=== PATIENT | male | born 1945 | race Caucasian/White ===

== ENCOUNTER 2017-05-03 21:25 | Emergency (ER) | payer OTHER ==
--- NOTE | 2017-05-03 21:41 | CPEKG ---
Heart Rate: 81 RR Interval: 741 P-R Interval: 164 QRSD Interval: 112 QT Interval: 396 QTC Interval: 460 P [place]: 70 QRS [place]: 227 T Wave [place]: 42 EKG Severity - ABNORMAL ECG - EKG Impression: SINUS RHYTHM EKG Impression: PVC's EKG Impression: NONSPECIFIC INTRAVENTRICULAR CONDUCTION DELAY Electronically Signed By: Oscar Weber 04-May-2017 01:37:11
[2017-05-03] MEDS: NS 500 ML IV ONE (22:05)
[2017-05-03 22:19] LABS: % IMMATURE GRANULYOCYTES 0.3 % (0.0-1.1); ABSOLUTE IMMATURE GRANULOCYTES 0.03 10^3/uL (0.00-0.10); ADD DIFF? NO; ADD MORPH? NO; ADD SCAN? NO; ATYPICAL LYMPHOCYTE FLAG 0 (0-99); FRAGMENT RBC FLAG 0 (0-99); HEMATOCRIT 43.8 % (40.0-51.0); HEMOGLOBIN 14.7 g/dL (13.7-17.5); LEFT SHIFT FLG 0 (0-99); LIPEMIA HEMOLYSIS FLAG 80 (0-99); MEAN CELL HEMOGLOBIN 27.9 pg (27.9-34.1); MEAN CELL HEMOGLOBIN CONCENTR. 33.6 g/dL (32.4-36.7); MEAN CELL VOLUME 83.3 fL (81.5-99.8); MEAN PLATELET VOLUME 9.3 fL (8.7-11.7); PLATELET CLUMPS FLAG 0 (0-99); PLATELET COUNT 291 10^3/uL (150-400); RED BLOOD CELL COUNT 5.26 10^6/uL (4.40-6.38); RED CELL DISTRIBUTION WIDTH 14.6 % (11.5-15.2)
[2017-05-03 22:28] LABS: INR 0.92 (0.83-1.16); PROTIME(PATIENT) 12.3 SEC (12.0-15.0)
[2017-05-03 22:29] LABS: APTT 26.8 SEC (23.0-38.0)
--- NOTE | 2017-05-03 23:02 | EDPHY ---
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 He has a past medical history of coronary artery disease , had a CABG 20 years ago. Patient states that this afternoon he felt some not mild nausea. Checked his pulse and felt he was bradycardic in the 50s and noted that he had an irregular pulse. He has not had any chest pain. No shortness of breath. Some mild lightheadedness. No fevers or chills. No recent illness. He did go golfing this morning but the drink plenty of fluid. ROS: 10 point Review of Systems is negative except as noted in the HPI. PMH: The coronary artery disease, diabetes, kidney stones, hypertension Medications: Metoprolol, metformin, Pravachol, aspirin, valsartan/ hydrochlorothiazide, amlodipine, tamsulosin Allergies: No known drug allergies Social History: No smoking, rare alcohol, occasional marijuana Family History: Father had hypertension lung cancer Physical Exam: Gen: Awake, Alert, No Distress HEENT: Nose: no rhinorrhea Eyes: PERRLA, EOMI Mouth: Moist mucosa Neck: Supple, no JVD Chest: nontender, lungs clear to auscultation Heart: S1, S2 normal, no murmur Abd: Soft, non-tender, no guarding Back: no CVA tenderness, no midline tenderness Ext: no edema, non-tender Skin: no rash Neuro: CN II-XII intact, Sensation grossly intact, Strength 5/5 in bilateral upper and lower extremities - Personal History Current Tetanus Diphtheria and Acellular Pertussis (TDAP): Yes Tetanus Vaccine Date: 2013 - Medical/Surgical History Hx Asthma: No Hx Chronic Respiratory Disease: Yes Hx Diabetes: Yes Hx Cardiac Disease: Yes Hx Renal Disease: No Hx Cirrhosis: No Hx Alcoholism: No Hx HIV/AIDS: No Hx Splenectomy or Spleen Trauma: No Other PMH: PSH: cabg; transurethral lazer R side kidney stone removal; B elective iridectomy;. PMH: t2DM; htn; CAD; R side kidney stone, copd; b decreased hearing; sleep apnea w/ cpap - Social History Smoking Status: Former smoker Constitutional: Initial Vital Signs Heart Rate 79 05/03/17 21:30 Respiratory Rate 20 05/03/17 21:30 Blood Pressure 164/90 H 05/03/17 21:30 O2 Sat (%) 97 05/03/17 21:30 O2 Delivery Mode Room Air Allergies/Adverse Reactions: lisinopril Allergy (Verified 05/03/17 21:27) bee stings Allergy (Uncoded 05/03/17 21:27) Home Medications: Medication Instructions Recorded Aspirin 11/24/15 Metformin HCl 11/24/15 Metoprolol Succinate 11/24/15 Pravachol 11/24/15 Amlodipine Besylate 05/03/17 Tamsulosin HCl 05/03/17 Valsartan-Hctz 80-12.5 mg Tab 05/03/17 Medical Decision Making - Diagnostics EKG Interpretation: ECG time 9:38 p.m., sinus rhythm with a rate of 81, frequent unifocal PVCs, normal axis, normal intervals, nonspecific intraventricular conduction delay, no acute ST or T-wave changes. ED Course/Re-evaluation: ECG is normal. Does have some PVCs but nothing else concerning. Electrolytes are normal. Troponin is undetectable. Patient continues to have some rare PVCs but otherwise symptom free. Will discharge with follow-up with primary care physician instructions return for worsening. No evidence of acute coronary syndrome at this time. - Data Points Laboratory Results: Laboratory Results 05/03/17 21:45 05/03/17 21:45 05/03/17 05/03/17 05/03/17 21:45 21:45 21:45 WBC 9.84 10^3/uL H 10^3/uL (3.80-9.50) RBC 5.26 10^6/uL 10^6/uL (4.40-6.38) Hgb 14.7 g/dL g/dL (13.7-17.5) Hct 43.8 % % (40.0-51.0) MCV 83.3 fL fL (81.5-99.8) MCH 27.9 pg pg (27.9-34.1) MCHC 33.6 g/dL g/dL (32.4-36.7) RDW 14.6 % % (11.5-15.2) Plt Count 291 10^3/uL 10^3/uL (150-400) MPV 9.3 fL fL (8.7-11.7) Neut % (Auto) 57.7 % % (39.3-74.2) Lymph % (Auto) 29.2 % % (15.0-45.0) [place] % (Auto) 9.6 % % (4.5-13.0) Eos % (Auto) 2.5 % % (0.6-7.6) Baso % (Auto) 0.7 % % (0.3-1.7) Nucleat RBC Rel Count 0.0 % % (0.0-0.2) Absolute Neuts (auto) 5.68 10^3/uL 10^3/uL (1.70-6.50) Absolute Lymphs (auto) 2.87 10^3/uL 10^3/uL (1.00-3.00) Absolute Monos (auto) 0.94 10^3/uL H 10^3/uL (0.30-0.80) Absolute Eos (auto) 0.25 10^3/uL 10^3/uL (0.03-0.40) Absolute Basos (auto) 0.07 10^3/uL 10^3/uL (0.02-0.10) Absolute Nucleated RBC 0.00 10^3/uL 10^3/uL (0-0.01) Immature Gran % 0.3 % % (0.0-1.1) Immature Gran # 0.03 10^3/uL 10^3/uL (0.00-0.10) PT 12.3 SEC SEC (12.0-15.0) INR 0.92 (0.83-1.16) APTT 26.8 SEC SEC (23.0-38.0) Sodium 139 mEq/L mEq/L (134-144) Potassium 4.1 mEq/L mEq/L (3.5-5.2) Chloride 101 mEq/L mEq/L (97-110) Carbon Dioxide 23 mEq/l mEq/l (22-31) Anion Gap 15 mEq/L mEq/L (8-16) BUN 22 mg/dL mg/dL (7-23) Creatinine 1.3 mg/dL mg/dL (0.7-1.3) Estimated GFR 55 Glucose 123 mg/dL H mg/dL (70-100) Calcium 10.2 mg/dL mg/dL (8.5-10.4) Troponin I < 0.012 ng/mL ng/mL (0-0.034) NT-Pro-B Natriuret Pep 114 pg/mL pg/mL (0-125) Medications Given: Discontinued Medications Sodium Chloride (Ns) 500 mls @ 1,000 mls/hr IV ONCE ONE PRN Reason: Protocol Stop: 05/03/17 22:03 Last Admin: 05/03/17 22:05 Dose: 500 mls Departure - Departure Disposition: Home, Routine, Self-Care Clinical Impression: PVC (premature ventricular contraction) Condition: Fair Instructions: Premature Ventricular Contractions (ED) Additional Instructions: Follow up with primary care physician in 2-3 days if you're continuing to have an irregular heartbeat. Return to the emergency department for chest pain, shortness of breath, lightheadedness, passing out, or any other concerns. Referrals: Mateo Glover MD [Primary Care Provider] - As per Instructions
[2017-05-03 23:24] LABS: ANION GAP 15 mEq/L (8-16); CALCIUM 10.2 mg/dL (8.5-10.4); CARBON DIOXIDE 23 mEq/l (22-31); CHLORIDE 101 mEq/L (97-110); CREATININE 1.3 mg/dL (0.7-1.3); GLOMERULAR FILTRATION RATE 55; GLUCOSE 123 mg/dL (70-100); POTASSIUM 4.1 mEq/L (3.5-5.2); SODIUM 139 mEq/L (134-144)
[2017-05-03 23:31] VITALS: O2SAT 95
[2017-05-03 23:36] LABS: TROPONIN I < 0.012 ng/mL (0-0.034)
[2017-05-04 00:01] VITALS: BP 116/56; PULSE 76; RESP 16
[2017-05-04] MEDS: NS 500 ML IV ONE (00:01)
== END 2017-05-04 00:01 | disposition home or self-care (01) ==
DX: I49.3 Ventricular premature depolarization (principal); I25.810 Atherosclerosis of coronary artery bypass graft(s) without angina pectoris; E11.9 Type 2 diabetes mellitus without complications; I10 Essential (primary) hypertension; Z79.82 Long term (current) use of aspirin; Z79.84 Long term (current) use of oral hypoglycemic drugs; Z87.891 Personal history of nicotine dependence

== ENCOUNTER → 2017-09-15 | Outpatient (CLI) | payer OTHER | LOC: FIMAGING 10:53 | PROVIDERS: ATTEND Neurological Surgery | DX: M54.16 Radiculopathy, lumbar region (principal); M51.36 Other intervertebral disc degeneration, lumbar region; M41.9 Scoliosis, unspecified; Q76.49 Other congenital malformations of spine, not associated with scoliosis; M48.16 Ankylosing hyperostosis [Forestier], lumbar region; M48.061 Spinal stenosis, lumbar region without neurogenic claudication; M51.26 Other intervertebral disc displacement, lumbar region ==

== ENCOUNTER → 2017-11-24 | Outpatient (CLI) | payer OTHER | LOC: BHFA 08:30 | PROVIDERS: ATTEND Internal Medicine Interventional Cardiology | DX: I25.10 Atherosclerotic heart disease of native coronary artery without angina pectoris (principal); I10 Essential (primary) hypertension | CPT/HCPCS: 78452; 93017; A9500 ==

== ENCOUNTER 2017-12-02 07:30 | Inpatient (IN) | payer OTHER ==
[2017-12-21] MEDS ORDERED: GABAPENTIN 300 MG CAP PO ONE (10:49)
[2017-12-21] MEDS ORDERED: ACETAMINOPHEN 500 MG TAB PO ONE (10:49)
[2017-12-21] MEDS ORDERED: ceFAZolin 2 GM/SWFI 2 GM/20 ML SYR IVP ONE (10:49)
[2017-12-21] MEDS ORDERED: LR 1,000 ML IV ONE (10:52)
[2017-12-21] MEDS ORDERED: LIDOCAINE 1% 2 ML INJ ID PRN (10:52)
[2017-12-21] MEDS ORDERED: BACITRACIN 50,000 UNITS/10 ML SYR IRR ONE (10:57)
[2017-12-21] MEDS ORDERED: CHLORHEXIDINE GLUC HIBICLENS 118 ML BTL TP ONE (10:57)
[2017-12-21] MEDS ORDERED: BUPIVACAINE 0.25% 30 ML SDV ONE ×2 (10:57→13:09)
[2017-12-21] MEDS ORDERED: DEPO METHYLPREDNISOLONE 40 MG/ML SDV ONE (10:57)
--- NOTE | 2017-12-21 11:25 | PDGENHP ---
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 He describes his symptoms as bilateral quad pain as well as lower back pain that is exacerbated with walking. He has a history of CABG 20 years ago and underwent a stress test earlier this month. History Information - Allergies/Home Medication List Allergies/Adverse Reactions: lisinopril Allergy (Verified 10/30/17 10:37) bee stings Allergy (Uncoded 05/03/17 21:27) Home Medications: Aspirin DAILY AT 6AM 11/24/15 [Last Taken Unknown] Metformin HCl BID 11/24/15 [Last Taken Unknown] Metoprolol Succinate DAILY AT 8PM 11/24/15 [Last Taken Unknown] Pravachol DAILY AT 8PM 11/24/15 [Last Taken Unknown] Amlodipine Besylate DAILY AT 6AM 05/03/17 [Last Taken Unknown] Tamsulosin HCl BID 05/03/17 [Last Taken Unknown] Valsartan-Hctz 80-12.5 mg Tab DAILY AT 6AM 05/03/17 [Last Taken Unknown] Proscar 5 MG (*) DAILY AT 6AM 10/30/17 [Last Taken Unknown] I have personally reviewed and updated: family history, medical history, social history, surgical history - Past Medical History coronary artery disease - Surgical History Reports: no pertinent surgical hx - Social History Smoking Status: Former smoker Review of Systems Review of Systems: ROS: 10pt was reviewed & negative except for what was stated in HPI & below Physical Exam Physical Exam: AxO x3 bilateral lower extremities 5/5 throughout all muscle groups 2+ knee and ankle reflexes Constitutional: no apparent distress Eyes: PERRL Ears, Nose, Mouth, Throat: moist mucous membranes Cardiovascular: regular rate and rhythym Respiratory: no respiratory distress Skin: warm, normal color Musculoskeletal: full muscle strength Neurologic: AAOx3 Assessment & Plan Assessment: 72 yr old with low back pain and bilateral quad pain Plan: 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 MRI lumbar spine demonstrates bony union at L5-S1 and severe stenosis at L2-3, L3-4, L4-5. The is trace spondylolisthesis. Dr Cardoza suggested a 3 level laminectomy. He does not feel fusion surgery is needed at this time but certainly could be needed at a later time. Adam received cardiac clearance from [facility]. Surgery scheduled is L2-3, L3-4, L4-5 laminectomy. Risks/benefits reviewed and consents have been signed.
--- NOTE | 2017-12-21 12:33 | PDANEPAE ---
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 ANE Past Medical History - Cardiovascular History Hx Hypertension: Yes Hx Arrhythmias: No Hx Chest Pain: No Hx Coronary Artery / Peripheral Vascular Disease: Yes Hx CHF / Valvular Disease: No Hx Palpitations: No Cardiovascular History Comment: 5 v bypass 1996. recent MPI - nl EF, no inducible or fixed perfusion defects - Pulmonary History Hx COPD: No Hx Asthma/Reactive Airway Disease: No Hx Recent Upper Respiratory Infection: No Hx Oxygen in Use at Home: No Hx Sleep Apnea: Yes Sleep Apnea Screening Result - Last Documented: Positive - Neurologic History Hx Cerebrovascular Accident: No Hx Seizures: No Hx Dementia: No - Endocrine History Hx Diabetes: Yes Hypothyroid: No Obesity: mild - Renal History Hx Renal Disorders: No Renal History Comment: Hx of kidney stones - Liver History Hx Hepatic Disorders: No - Neurological & Psychiatric Hx Hx Neurological and Psychiatric Disorders: No - Cancer History Hx Cancer: No - Congenital Disorder History Hx Congenital Disorders: No - GI History Hx Gastrointestinal Disorders: No - Other Health History Other Health History: BPH - Surgical History Prior Surgeries: Lithotripsy 2016 and 2015. CABG 1996. Carpel tunnel 2006 ANE Review of Systems Review of Systems: - Exercise capacity METS (RN): 4 METS - Systems Constitutional: Reports: no symptoms Cardiac: Reports: no symptoms Respiratory: Reports: no symptoms ANE Patient History - Allergies Allergies/Adverse Reactions: lisinopril Allergy (Verified 10/30/17 10:37) bee stings Allergy (Uncoded 05/03/17 21:27) - Home Medications Home Medications: Aspirin DAILY AT 6AM 11/24/15 [Last Taken 2 Weeks Ago ~12/07/17] Metformin HCl BID 11/24/15 [Last Taken 12/19/17] Metoprolol Succinate DAILY AT 8PM 11/24/15 [Last Taken 12/20/17 20:00] Pravachol DAILY AT 8PM 11/24/15 [Last Taken 12/20/17 20:00] Amlodipine Besylate DAILY AT 6AM 05/03/17 [Last Taken 12/20/17 07:00] Tamsulosin HCl BID 05/03/17 [Last Taken 12/21/17 07:00] Valsartan-Hctz 80-12.5 mg Tab DAILY AT 6AM 05/03/17 [Last Taken 12/20/17 07:00] Proscar 5 MG (*) DAILY AT 6AM 10/30/17 [Last Taken 12/21/17 07:00] - NPO status NPO Since - Liquids (Date): 12/21/17 NPO Since - Liquids (Time): 04:00 NPO Since - Solids (Date): 12/20/17 NPO Since - Solids (Time): 22:00 - Anes Hx Anes Hx: no prior problems - Smoking Hx Smoking Status: Former smoker Marijuana use: Yes - Alcohol Use Alcohol Use: Rarely - Family Anes Hx Family Anes Hx: neg - N/A Family Hx Anesthesia Complications: NA ANE Labs/Vital Signs - Labs - BMP Glucose: 146 Creatinine: 1.3 - Vital Signs Blood Pressure: 149/75 Heart Rate: 91 Respiratory Rate: 16 O2 Sat (%): 94 Height: 172.72 cm Weight: 99.79 kg ANE Physical Exam - Airway Neck exam: FROM Mallampati Score: Class 3 - Pulmonary Pulmonary: clear to auscultation - Cardiovascular Cardiovascular: regular rate and rhythym - ASA Status ASA Status: III ANE Anesthesia Plan Anesthesia Plan: general endotracheal anesthesia Lines/Monitors: arterial line, additional IV
[2017-12-21] MEDS ORDERED: PROPOFOL/EMULSION 500 MG/50 ML BOTTLE IV ONE ×3 (12:40→14:36)
[2017-12-21] MEDS ORDERED: fentaNYL 250 MCG/5 ML INJ ONE (12:40)
[2017-12-21] MEDS ORDERED: REMIFENTANIL HCL 1 MG VIAL ONE (12:40)
[2017-12-21] MEDS ORDERED: MIDAZOLAM 2 MG/2 ML VIAL ONE (12:44)
[2017-12-21] MEDS ORDERED: LIDOCAINE 2% 5 ML SDV ONE ×2 (12:49)
[2017-12-21] MEDS ORDERED: ROCURONIUM 50 MG/5 ML VIAL ONE (12:49)
[2017-12-21] MEDS ORDERED: MIDAZOLAM 2 MG/2 ML VIAL IVP ONE (12:53)
[2017-12-21] MEDS ORDERED: THROMBIN (BOVINE) 5,000 UNIT VIAL TP ONE (13:09)
[2017-12-21] MEDS ORDERED: METHOCARBAMOL 750 MG TAB PO PRN (13:27)
[2017-12-21] MEDS ORDERED: MAGNESIUM HYDROXIDE 30 ML UDCUP PO PRN (13:27)
[2017-12-21] MEDS ORDERED: ONDANSETRON DISINTEGRATING 4 MG TAB PO PRN (13:27)
[2017-12-21] MEDS ORDERED: ONDANSETRON 4 MG/2 ML VIAL IVP PRN (13:27)
[2017-12-21] MEDS ORDERED: LACTULOSE 20 GM/30 ML UDCUP PO PRN (13:27)
[2017-12-21] MEDS ORDERED: diphenhydrAMINE 25 MG CAP PO PRN (13:27)
[2017-12-21] MEDS ORDERED: POLYETHYLENE GLYCOL 3350 17 GM PKT PO PRN (13:27)
[2017-12-21] MEDS ORDERED: oxyCODONE IR 5 MG TAB PO PRN (13:27)
[2017-12-21] MEDS ORDERED: BISACODYL 10 MG SUPP PR PRN (13:27)
[2017-12-21] MEDS ORDERED: ceFAZolin 2 GM/DEXTROSE 100 ML IV SCH (14:00)
[2017-12-21] MEDS ORDERED: INSULIN LISPRO 100 UNIT/ML SC ONE ×2 (14:30→16:56)
[2017-12-21] MEDS ORDERED: PROPOFOL 200 MG/20 ML VIAL ONE ×2 (16:10)
[2017-12-21] MEDS ORDERED: ONDANSETRON 4 MG/2 ML VIAL ONE (16:12)
[2017-12-21] MEDS ORDERED: fentaNYL 100 MCG/2 ML INJ IVP PRN (16:56)
[2017-12-21] MEDS ORDERED: NALOXONE HCL 0.4 MG/ML INJ IVP PRN (16:56)
[2017-12-21] MEDS ORDERED: DIAZEPAM 10 MG/2 ML SYR IVP PRN (16:56)
[2017-12-21] MEDS ORDERED: PROMETHAZINE HCL 25 MG/ML INJ IVP PRN (16:56)
[2017-12-21] MEDS ORDERED: LR 500 ML IV PRN (16:56)
[2017-12-21] MEDS ORDERED: OXYCODONE/APAP 5/325 TAB PO PRN (16:56)
[2017-12-21] MEDS ORDERED: ALBUTEROL 3 ML DEYVIAL IH PRN (16:56)
--- NOTE | 2017-12-21 17:25 | POSTOPPROG ---
Post Op Note Date of Operation: 12/21/17 Surgeon: Latrice Kelley Hot Air Furnace Installer And Repairer: Latrice Kelley CMA OR LPN Anesthesia: GET(General Endotracheal) Pre-op Diagnosis: Lumbar stenosis Procedure: L2-5 laminectomies Inf/Abcess present in the surg proc area at time of surgery?: No Depth: Deep Incisional (Fascial) EBL: 100-500 Total fluids administered: see anesthesia Complications: none Date of Surgery: 12/21/17 Post Op Day: 0 Assessment/Plan: 72 yr old s/p L2-5 laminectomies for low back pain and neurogenic claudication Plan: -PT/OT -Pain management -Please call neurosurgery with any questions/concerns Subjective: patient waking up in pacu Objective: patient waking up in pacu moving extremities x4 sensation intact to light touch BLE Dressing CDI Appropriate Neuro Check Frequency Ordered: Yes
[2017-12-21] MEDS ORDERED: D50W 25 GM/50 ML SYR IVP PRN (17:30)
--- NOTE | 2017-12-21 17:45 | POSTANESTH ---
Post Anesthetic Evaluation Cardiovascular Status: Tx Over/Under Hydration (Will give mini IVF bolus) Respiratory Status: Normal, Stable Level of Consciousness/Mental Status: Can Participate in Eval, Moderately Sleepy Pain Control: Adequate, Prn Tx Ordered Nausea/Vomiting Control: Adequate, Prn Tx Ordered Complications Possibly Related to Anesthesia: None Noted (moving extremities x4. )
--- NOTE | 2017-12-21 17:54 | GOP ---
[f rep st] OPERATIVE REPORT DATE OF OPERATION: 12/21/2017 SURGEON: Bret Cardoza MD NEUROSURGEON: Bret Cardoza MD. BREAKER MACHINE TENDER: Latrice Kelley NP. PREOPERATIVE DIAGNOSIS: Lumbar spondylolisthesis, lumbar stenosis, severe lumbar stenosis L2-3, L3-4 , L4-5, neurogenic claudication, right flank pain. POSTOPERATIVE DIAGNOSIS: Lumbar spondylolisthesis, lumbar stenosis, severe lumbar stenosis L2-3, L3- 4, L4-5, neurogenic claudication, right flank pain. PROCEDURE PERFORMED: L2-3, L3-4, L4-5 laminectomy with bilateral medial facetectomies, decompression central thecal sac as well as bilateral recesses, L2-3, L3-4, L4-5 ([id number], [id number] x2), microscope. FINDINGS: ESTIMATED BLOOD LOSS: 250 cc. 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 An MRI of the lumbar spine demonstrated severe stenosis at L2-3, L3-4, L4-5 . He had a severe disk degenerative changes at L4-5 and a calcified disk at that level and really se bonita bilateral facet arthropathy at L3-4, L4-5 with encroachment of the lateral recess spinal canal. I suggested a 3 level laminectomy. We did discuss the possible need for fusion surgery, but this in my view would be an overkill. He did have spondylolisthesis but not remarkable instability and I th ought there was a chance he would get by with a stenosis operation alone. It is my hope that this co uld be accomplished as a L2-L5 fusion. In a gentleman of his age, it is no small undertaking for him and all the subsequent sequela of such an operation. He understood however, there is a chance he wo uld need more extensive surgery and he also developed right flank pain and the etiology of this was u nclear, but he just underwent a procedure for removal of a left kidney stone and the etiology of his right flank pain was unknown. There is a small chance that spinal surgery alone might solve some of this discomfort and I thought we should go ahead and proceed. The risk of nerve injury, spinal fluid leak was discussed. He did want to proceed. DESCRIPTION OF PROCEDURE: The patient was taken to the operating room, placed in the supine position . General anesthesia was begun. He was flipped prone on to the Jean frame. Care was taken to pad all points of contact. His back was sterilely prepped and draped in usual fashion. A localizing x- ray was taken and a midline incision above the L2-3, L3-4, L4-5 interspace. The total incisional katerina gth was 5.5 cm. The subcutaneous tissue was dissected using Bovie cautery down through the fascia an d a subperiosteal dissection was made down the L2-3, L3-4, L4-5 lamina. A localizing x-ray was taken . We removed the complete lamina of L3 and the complete lamina of L4, and we preserved the spinous p rocess of L2 and the spinous process of L5. Localizing x-ray was taken. We introduced operating gary roscope and under the scope, we drilled bilateral laminectomies at L2-3, L3-4, L4-5. He had really r emarkable bilateral facet arthropathy. We opened the thecal sac in the midline initially from L4-[address] up to L2-3 and a nice decompression was performed and as we began to move laterally at L4- 5, it became quite apparent that the dura and the facet joints had become 1 at L4-5, so we turned our attention to L3-4 where we worked our way rostrally and laterally out at L4-5 and here too, there wa s just remarkable facet arthropathy and encroachment in the spinal canal by the facet joints. This t ook a considerable time dissecting around the joints and working our way out in the lateral recess, d ecompressing from the edge of the thecal sac to the edge of the thecal sac, but we were able to do so and as we worked our way rostrally through the rostral arch of L3 into the L2-3 level, there was reji y severe stenoses there as well. We drilled bilateral laminotomies of L2 and decompressed from the i nferior border of the L2 pedicle, which we later proved with an x-ray down through the L2-3 level and across the disk space following the L3 nerve root out into the neural foramen. We did perform yeimi inotomies at L2-3 and L3-4 and then turned our attention to L4-5, where we began on the patient's lef t-hand side and we performed a laminotomy of L5 and then worked our way inferiorly down towards the L 5 pedicle and out laterally and then we came up on toward the hypertrophic facet. We could not separ ate the facet from the dura, could not use a Kerrison to remove this medial portion of the facet, so we simply drilled the facet out just the lateral to the edge of the thecal sac down into the neural f oramen flush with the L5 pedicle. We did preserve the L4-5 facet joint and the IAP of L4 completely, and we thinned this down until we were able to fracture this hypertrophic bone up out of the spinal canal. We did this with a curette and simply started peeling it up. We then dissected mm by mm, as we were able to from the dura in this fashion and got a great lateral recess decompression. We then swept the thecal sac medially and inspected the L4-5 disk and indeed there was some bulging of the L4-5 disk and it was calcified and appeared to be nearly solid bone. There was no compressio n of the L5 nerve root that was residual. I was happy with what we had done on the left-hand side. We then went to the patient's right-hand side and found really essentially the same exact problem and dealt it in the same way. The difficulty on the right-hand side is the dura was even more stuck, bu t we were able to fracture this medial portion of the hypertrophic facet upward and then began to dis sect again the dura away from that fragment. We were eventually able to free it. We then irrigated with antibiotic saline solution. We shot a final x-ray showing the extent of our decompression from the lower L5 pedicle all the way up to the inferior L2 pedicle. There was no significant epidural bl eeding at this point. We had lost blood because of the length of the procedure, but there really had been no significant arterial bleeding at any time during the surgery. We then irrigated with antibi otic saline again and then closed the skin and deeper tissues in multiple layers using Vicryl sutures . Steri-Strips were applied to the skin. The patient was reversed from anesthesia, extubated, and t ransferred to recovery room in stable condition. There were no complications. COMPLICATIONS: None. /[id number]/MODL
[2017-12-21] MEDS ORDERED: DIAZEPAM 10 MG/2 ML SYR ONE (17:58)
[2017-12-21] MEDS ORDERED: fentaNYL 100 MCG/2 ML INJ ONE (17:58)
[2017-12-21] MEDS: GABAPENTIN 300 MG CAP PO SCH ×2 (19:04→22:39)
[2017-12-21] MEDS: ACETAMINOPHEN 500 MG TAB PO SCH ×2 (19:04→22:39)
[2017-12-21] MEDS: ceFAZolin 2 GM/DEXTROSE 100 ML IV SCH (19:37)
[2017-12-21] MEDS ORDERED: TAMSULOSIN HCL 0.4 MG CAP PO ONE (21:00)
[2017-12-21] MEDS ORDERED: metFORMIN HCL 500 MG TAB PO ONE (21:00)
[2017-12-21] MEDS ORDERED: METOPROLOL SUCCINATE XR 25 MG TAB PO ONE (21:00)
[2017-12-21] MEDS ORDERED: PRAVASTATIN SODIUM 20 MG TAB PO ONE (21:00)
[2017-12-21] MEDS: FAMOTIDINE 20 MG TAB PO SCH (21:05)
[2017-12-21] MEDS: SENNOSIDES/DOCUSATE SODIUM TAB PO SCH (21:05)
[2017-12-22] MEDS: ceFAZolin 2 GM/DEXTROSE 100 ML IV SCH (03:19)
[2017-12-22 04:59] LABS: PLATELET COUNT 246 10^3/uL (150-400)
[2017-12-22] MEDS: GABAPENTIN 300 MG CAP PO SCH ×4 (05:25→22:20)
[2017-12-22] MEDS: ACETAMINOPHEN 500 MG TAB PO SCH ×3 (05:25→22:02)
[2017-12-22] MEDS: FAMOTIDINE 20 MG TAB PO SCH ×2 (08:31→20:33)
[2017-12-22] MEDS: SENNOSIDES/DOCUSATE SODIUM TAB PO SCH ×2 (08:31→20:34)
--- NOTE | 2017-12-22 08:35 | NEUSURGPN ---
Date of Surgery: 12/21/17 Post Op Day: 1 Assessment/Plan: 72 yr old s/p L2-5 laminectomies for low back pain and neurogenic claudication POD#1 Plan: -PT/OT -Pain management, pain currently controlled with Tylenol -Patient with urinary retention, refusing straight cath stating he has chronic retention and is not uncomfortable. Will give patients flomax this am and reassess, if retention continues we will consult his urologist Dr Cornejo -May dc home later today pending urination/urology recs -Leg pain improved with ambulation, expected incisional pain -Patient was seen by Dr Cardoza as well -Please call neurosurgery with any questions/concerns Subjective: comfortable, leg pain improved Objective: AxO x3 5/5 BLE sensation intact to light touch BLE Dressing CDI Neuro Check Frequency: per routine Urinary Catheter in Place: No - Physician Discussed Patient with : Sony Patient Seen by : Sony Neurosurgery Physical Exam - Vitals, I&O, Labs I and O 12/21/17 12/22/17 12/23/17 05:59 05:59 05:59 Intake Total 3870 Output Total 510 300 Balance 3360 -300 Weight 99.79 kg Intake: Oral (ml) 1350 IV Intake (ml) 2300 IV Infused (ml) 220 ceFAZolin 2 GM/DEXTROSE 220 100 ml @ 200 mls/hr IV Q8H [facility] Rx#:[id number] Output: Urine (ml) 260 300 Catheter 260 Toilet 300 Estimated Blood Loss (ml) 250 Other: Number of Voids Toilet 4 Bladder Scan Volume (ml) Catheter 174 Vital Signs Temp Pulse Resp BP Pulse Ox 36.9 C 63 12 123/65 H 94 12/22/17 07:42 12/22/17 07:42 12/22/17 07:42 12/22/17 07:42 12/22/17 07:42 Laboratory Results 12/22/17 04:18 12/22/17 04:18 ICD10 Worksheet Patient Problems: Problems Problem Status Onset Lumbar stenosis Acute - ICD10 Problem Qualifiers (1) Lumbar stenosis
[2017-12-22] MEDS ORDERED: HYDROCHLOROTHIAZIDE 12.5 MG CAP PO SCH (09:00)
[2017-12-22] MEDS: TAMSULOSIN HCL 0.4 MG CAP PO SCH (10:25)
[2017-12-22] MEDS: FINASTERIDE 5 MG TAB PO SCH (10:27)
[2017-12-22] MEDS: metFORMIN SR 500 MG TAB PO SCH ×4 (10:40→20:33)
[2017-12-22 12:15] VITALS: RESP 16
--- NOTE | 2017-12-22 16:00 | ASMTCMCOM ---
CM Note CM Note Notes: Pt s/p L2-L5 lami with decompression. 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 PT/OT rec home. Anticipate pt will d/c when medically stable. No CM d/c needs identified at this time. CM available for changes/needs. Date Signed: 12/22/2017 04:00 PM Electronically Signed By:VISHAL Benitez
[2017-12-22] MEDS ORDERED: METOPROLOL SUCCINATE XR 25 MG TAB PO SCH (20:00)
[2017-12-22] MEDS ORDERED: PRAVASTATIN SODIUM 40 MG TAB PO SCH (21:00)
[2017-12-23] MEDS: metFORMIN SR 500 MG TAB PO SCH ×2 (05:50→08:31)
[2017-12-23] MEDS: ACETAMINOPHEN 500 MG TAB PO SCH (05:50)
[2017-12-23] MEDS: TAMSULOSIN HCL 0.4 MG CAP PO SCH (05:54)
[2017-12-23] MEDS: FINASTERIDE 5 MG TAB PO SCH (05:55)
[2017-12-23] MEDS ORDERED: VALSARTAN 80 MG TAB PO SCH (06:00)
[2017-12-23] MEDS ORDERED: VALSARTAN HCTZ PO SCH (06:00)
[2017-12-23] MEDS ORDERED: HYDROCHLOROTHIAZIDE 12.5 MG CAP PO SCH (06:00)
[2017-12-23 07:59] VITALS: BP 122/55; PULSE 62; TEMP 98.4; O2SAT 96
[2017-12-23] MEDS: SENNOSIDES/DOCUSATE SODIUM TAB PO SCH (08:27)
[2017-12-23] MEDS: FAMOTIDINE 20 MG TAB PO SCH (08:27)
--- NOTE | 2017-12-23 08:32 | NEUSURGPN ---
Date of Surgery: 12/21/17 Post Op Day: 2 Assessment/Plan: 72 yr old s/p L2-5 laminectomies for low back pain and neurogenic claudication POD#2 Plan: -PT/OT -Pain currently controlled with Tylenol, will try ice pack to incisional area -Post op urinary retention improved, patient taking home dose Flomax -May dc home -Leg pain improved with ambulation, expected incisional pain -Patient was seen by Dr Cardoza as well -Please call neurosurgery with any questions/concerns Subjective: Expected incisional pain Objective: AxO x3 5/5 BLE sensation intact to light touch BLE Dressing CDI Neuro Check Frequency: per routine Urinary Catheter in Place: No - Physician Discussed Patient with Dr.: Soyn Patient Seen by .: Sony Neurosurgery Physical Exam - Vitals, I&O, Labs I and O 12/22/17 12/23/17 12/24/17 05:59 05:59 05:59 Intake Total 3870 Output Total 510 300 Balance 3360 -300 Weight 99.79 kg Intake: Oral (ml) 1350 IV Intake (ml) 2300 IV Infused (ml) 220 ceFAZolin 2 GM/DEXTROSE 220 100 ml @ 200 mls/hr IV Q8H [facility] Rx#:[id number] Output: Urine (ml) 260 300 Catheter 260 Toilet 300 Estimated Blood Loss (ml) 250 Other: Intake Quantity Yes Sufficient Number of Voids Toilet 4 1 Bladder Scan Volume (ml) Catheter 174 Vital Signs Temp Pulse Resp BP Pulse Ox 36.9 C 62 16 122/55 H 96 12/23/17 07:58 12/23/17 07:58 12/23/17 07:58 12/23/17 07:58 12/23/17 07:58 Laboratory Results 12/22/17 04:18 12/22/17 04:18 ICD10 Worksheet Patient Problems: Problems Problem Status Onset Lumbar stenosis Acute - ICD10 Problem Qualifiers (1) Lumbar stenosis
--- NOTE | 2017-12-23 11:04 | ASDISCHSUM ---
Discharge Information Plan Status:Home with No Needs Medically Cleared to Leave: Discharge Date:12/23/2017 10:58 AM CM D/C Disposition:Home, Routine, Self-Care ADT D/C Disposition:Home, Routine, Self-Care Projected Discharge Date:12/23/2017 10:58 AM Transportation at D/C: Discharge Delay Reason: Follow-Up Date:12/23/2017 10:58 AM Discharge Slot: Final Diagnosis: Placement Information Patient Contact Information Contact Name:RADHA Relationship: Address:[address] City:[facility] Phone: [facility]/Zip Code:[place] [address] Email: Financial Information Financial Class: Primary Plan Desc:MEDICARE INPATIENT Primary Plan Number:[id number] Secondary Plan Desc:[employer] Secondary Plan Number:[id number] Assessment Information [facility] CM Progress Note CM Note CM Note Notes: Pt s/p L2-L5 lami with decompression. Retired , lives w spouse. PT/OT rec home. Anticipate pt will d/c when medically stable. No CM d/c needs identified at this time. CM available for changes/needs. Date Signed: 12/22/2017 04:00 PM Electronically Signed By:VISHAL Benitez Intervention Information
[2017-12-24] MEDS ORDERED: ENOXAPARIN 40 MG/0.4 ML SYR SC SCH (09:00)
== END 2017-12-23 10:58 | disposition home or self-care (01) | DRG 520 ==
LOC: F3N 12-21 10:43 → OBSVTOIN 12-21 13:27 → F3N 12-21 18:36
PROVIDERS: ADMIT Neurological Surgery; ATTEND Neurological Surgery
PROC: 01NB0ZZ Release Lumbar Nerve, Open Approach (ICD-10-PCS; principal; 2017-12-21 12:30)
PROC: 00NY0ZZ Release Lumbar Spinal Cord, Open Approach (ICD-10-PCS; principal; 2017-12-21 12:30)
DX: M48.062 Spinal stenosis, lumbar region with neurogenic claudication (principal); M51.36 Other intervertebral disc degeneration, lumbar region; M54.16 Radiculopathy, lumbar region; I25.10 Atherosclerotic heart disease of native coronary artery without angina pectoris; I25.2 Old myocardial infarction; I10 Essential (primary) hypertension; E78.5 Hyperlipidemia, unspecified; G47.33 Obstructive sleep apnea (adult) (pediatric); E11.9 Type 2 diabetes mellitus without complications; M43.16 Spondylolisthesis, lumbar region; Z87.891 Personal history of nicotine dependence; Z95.1 Presence of aortocoronary bypass graft
CPT/HCPCS: 82947-QW; 97116-GP; 97161-GP; 97165-GO; 97535-GO; G8978-GP-CI; G8979-GP-CI; G8980-GP-CI; G8987-GO-CJ; G8988-GO-CI; G8989-GO-CI; J0171; J0690; J1030; J1815; J2250; J2405; J2704; J3010

== ENCOUNTER → 2017-12-07 | Outpatient (CLI) | payer OTHER | LOC: FIMAGING 17:26 | PROVIDERS: ATTEND Emergency Medicine | DX: N20.1 Calculus of ureter (principal) ==

== ENCOUNTER → 2017-12-14 | Outpatient (CLI) | payer OTHER | LOC: FIMAGING 13:14 | PROVIDERS: ATTEND Physician Assistant | DX: N20.2 Calculus of kidney with calculus of ureter (principal) ==

== ENCOUNTER → 2018-02-26 | Outpatient (CLI) | payer OTHER | LOC: FIMAGING 09:17 | PROVIDERS: ATTEND Urology | DX: N20.0 Calculus of kidney (principal); N28.1 Cyst of kidney, acquired ==